=== PATIENT | male | born 1935 | race Caucasian/White ===

== ENCOUNTER 2023-06-12 22:46 | Emergency (ER) | payer OTHER, SELFPAY ==
[2023-06-12 22:51] VITALS: BP 138/76
--- NOTE | 2023-06-12 23:54 | ED.GENMED ---
History of Present Illness
General
Chief Complaint: Fall
Source: patient
Exam Limitations: none
Time Seen by Provider: 06/12/23 23:47
Travel History
Have you had any contact with someone who has COVID-19?: No
Do you have any symptoms of coronavirus? Fever > 100 degrees, chills, cough, shortness of breath, sore throat, loss of taste or smell, muscle aches, or headache?: No
History of Present Illness
History of Present Illness:
See MDM
Past History
Past History
ED Past Medical History: Arrthythmia (afib), CAD (Stent in October 2014), CHF, HTN, Hypercholesterolemia, IDDM, NM, Hypothyroidism, Other (Adrenal insufficiency, Pituitary rupture, syncope, prior history of bowel instruction, DVT R leg, pituitary
mass,PNA) and Other (DVT)
ED Past Surgical History: Appendectomy, Bowel resection (with Ileostomy for Diverticulitis), Cardiac (Pacer/Defib, Stents, CABG,), Cholecystectomy and Other (ileostomy, IVC filter)
Social History
Tobacco: Former smoker
Alcohol: None
Drug: None
Personal:
Living: with family
Employment: Retired
Family History
Family History: Hypertension
Phy Exam
Physical Exam
Physical Exam:
See MDM
Course
Orders/Labs/Results
Orders:
Orders
06/12/23 23:50
Electrocardiogram (*1) Urgent
Reason for Study: QTc Monitoring
EKG- Treatment ONCE
06/13/23 23:53
CR Chest - 2 Views Urgent
Reason For Exam: recent pacemaker, fall, chest discomfort
Vital Signs
Initial and Last Documented VS:
Initial Vital Signs
Temp Pulse Resp BP Pulse Ox
97.9 F 62 18 138/76 99
06/12/23 22:51 06/12/23 22:51 06/12/23 22:51 06/12/23 22:51 06/12/23 22:51
Last Documented Vital Signs
Temp Pulse Resp BP Pulse Ox
97.9 F 62 18 138/76 99
06/12/23 22:51 06/12/23 22:51 06/12/23 22:51 06/12/23 22:51 06/12/23 22:51
MDM/Problems Addressed
Differential Diagnosis Includes:
HPI and MDM Narrative:
88-year-old male presenting with a slip and fall. Patient had a defibrillator placed earlier today. He was told not to fall. This is a common occurrence per . Patient really denies any complaint
Given the recent surgery, will obtain EKG to assess that the leads are pacing and will obtain chest x-ray looking for any evidence of trauma or misplaced lead
Physical exam
General: Well appearing and non-toxic
HEENT: protecting airway
Neck: appears supple
CV: No evidence of cyanosis. Regular rate and rhythm
Chest: Pacemaker site clean and intact
Resp: No accessory muscle use
Abd: Non-distended
Extremities: No deformities
Neuro: alert
Psych: Normal affect
Skin: Intact
Problems Addressed including Acute and Chronic Conditions affecting care:
1. Fall
Acuity: acute
Prognosis: stable
Details: Will obtain chest x-ray given recent pacemaker
Updates
EKG is being paced and x-ray without acute injury. Patient and feel comfortable going home
Differential Diagnosis (but not limited to): Contusion, misplaced defibrillator lead, rib fracture
Testing considered: Hip x-ray but no tenderness elicited
Drug therapy (if applicable): OTC meds, please see d/c instruction regarding Rx drugs
Amount and/or Complexity of Data Reviewed
Clinical info obtained from: Patient
External data reviewed: N/A
Labs I independently reviewed (but not limited to): N/A
Radiology: N/A
Pulse Ox: not hypoxic
EKG independently reviewed: Biventricular paced rhythm, left axis, no STEMI
Apprentice Carpenter: N/A
Critical Care: N/A
Risk of Complication:
Social Determinants of health: Good social support
Discussed with other providers: N/A
Escalation of Care includes Admit/Obs: After being observed in the Emergency Department, pt stable for discharge.
Occasional wrong word or 'sound a like' substitutions may have occurred due to the inherent limitations of voice recognition software. Read the chart carefully and recognize, using context, where substitutions have occurred.
*Critical Care Note
Total Time (30-74mins, 75-104mins- exclusive of procedures): Not Applicable
ED Attending Note
-
Portions of this chart may have been created with voice recognition software.� Occasional wrong word or��sound alike� substitutions may have occurred due to the inherent limitations of voice recognition software.
Discharge Plan
Departure
Patient Disposition: Home (Routine Discharge)
Date of Disposition: 06/13/23
Time of Disposition: 00:48
Patient with high blood pressure during this ER visit?: No
Discharge Problem:
Frequent falls
Instructions: Preventing falls in adults
Prescriptions:
No Action
nitroglycerin 0.4 MG tablet, sublingual
0.4 mg sublingual [id number] PRN (Reason: chest pain)
atorvastatin 40 MG tablet
40 mg PO QPM
hydrocortisone 10 MG tablet
20 mg PO NOON
levothyroxine 75 MCG tablet
75 mcg PO DAILY@0700
ascorbic acid (vitamin C) [Vitamin C] 500 MG tablet
1,000 mg PO DAILY
magnesium 250 MG tablet
500 mg PO DAILY
tamsulosin 0.4 MG capsule
0.4 mg PO HS Qty: 30 0RF
ranolazine 500 MG tablet extended release 12 hr
500 mg PO QPM
insulin aspart U-100 [Novolog FlexPen U-100 Insulin] 300 UNITS/3 ML insulin pen
8 sliding scale dose SC AC
warfarin 2 mg Tablet
2 mg PO QPM
Hold Instructions: Resume on 05/04/23.
hydrocortisone 10 mg Tablet
10 mg PO QPM
pantoprazole 40 mg Tablet,Delayed Release (Dr/Ec)
40 mg PO DAILY
fluticasone propionate 50 mcg/actuation Crowell,Suspension
2 spray INTRANASAL DAILY
duloxetine 30 mg capsule,delayed release(DR/EC)
30 mg PO DAILY
insulin glargine 100 unit/mL (3 mL) Insulin Pen
20 unit SC DAILY
acetaminophen [Tylenol] 325 mg Tablet
650 mg PO Q6HPRN PRN (Reason: MILD PAIN)
potassium chloride 20 mEq tablet extended release
40 meq PO DAILY Qty: 30 0RF
furosemide 80 MG tablet
80 mg PO DAILY
metolazone 2.5 mg Tablet
2.5 mg PO TUFR PRN (Reason: WEIGHT >200LBS)
Rx Instructions:
TAKE 30 MINUTES PRIOR TO LASIX ON THURSDAY AND THURSDAY FOR WEIGHT > 200LBS
cholecalciferol (vitamin D3) [Vitamin D3] 50 mcg (2,000 unit) Tablet
50 mcg PO DAILY
metoprolol succinate 100 mg Tablet Extended Release 24 Hr
100 mg PO DAILY Qty: 90 3RF
Referrals:
Dominic Jules DO [Family Provider] -
Activity Restrictions/Additional Instructions:
Please return for any worsening symptoms.
You may return at any time if you have further concerns.
Please follow up with your doctor at the first available appointment, preferably this week.
Thank you for choosing [facility].
Interventions
Interventions:
*Risk Screen - Suicide Last Done: 06/12/23 22:51
*General Assessment Last Done: 06/12/23 22:51
*Neglect/Abuse Screening Last Done: 06/12/23 22:51
*ED COVID-19 Vaccine History Last Done: 06/12/23 22:51
ED-Musculoskeletal Assessment Last Done: 06/13/23 00:16
ED- Neurological Assessment Last Done: 06/13/23 00:16
ED-Skin Assessment Last Done: 06/13/23 00:16
== END 2023-06-13 01:31 | disposition home or self-care (01) ==
LOC: EMR 22:46
PROVIDERS: EMERGENCY PHYSICIAN Student in an Organized Health Care Education/Training Program; FAMILY PHYSICIAN Internal Medicine
DX: R07.89 Other chest pain (principal); W01.0XXA Fall on same level from slipping, tripping and stumbling without subsequent striking against object, initial encounter; I48.91 Unspecified atrial fibrillation; I25.10 Atherosclerotic heart disease of native coronary artery without angina pectoris; I11.0 Hypertensive heart disease with heart failure; I50.9 Heart failure, unspecified; E78.00 Pure hypercholesterolemia, unspecified; E11.9 Type 2 diabetes mellitus without complications; E03.9 Hypothyroidism, unspecified; E27.40 Unspecified adrenocortical insufficiency; I25.2 Old myocardial infarction; Z98.890 Other specified postprocedural states; Z79.4 Long term (current) use of insulin; R29.6 Repeated falls; Z86.718 Personal history of other venous thrombosis and embolism; Z87.891 Personal history of nicotine dependence; Z95.5 Presence of coronary angioplasty implant and graft; Z95.810 Presence of automatic (implantable) cardiac defibrillator; Z95.1 Presence of aortocoronary bypass graft; Z79.01 Long term (current) use of anticoagulants; Z98.0 Intestinal bypass and anastomosis status; Z90.49 Acquired absence of other specified parts of digestive tract; Z88.8 Allergy status to other drugs, medicaments and biological substances
CPT/HCPCS: 99283; 71046; 93005

== ENCOUNTER 2023-06-15 18:35 | Observation (INO) | payer OTHER, SELFPAY ==
[2023-06-15] VITALS (7 sets, daily range): BP systolic 115–143; BP diastolic 57–80; BMI 22.7; BMI 23.4
[2023-06-15 13:32] LABS: % Basophils 0.5 % (0-2); % Eosinophils 0.1 % (0-6); % Immature Granulocytes 0.4 % (0-0.5); % Lymphocytes 8.6 % (20.5-51.1); % Monocytes 9.8 % (1.7-9.3); % Neutrophils 80.6 % (42.2-75.2); Absolute Lymphocytes 0.7 10^3/uL (1.2-3.4); Absolute Monocytes 0.8 10^3/uL (0.1-0.6); Absolute Neutrophils 6.7 10^3/uL (1.4-6.5); Hematocrit 40.3 % (39.0-52.0); Hemoglobin 13.6 g/dL (13.0-18.0); Mean Corp Hgb Conc. 33.7 g/dL (33.0-37.0); Mean Corpuscular Hgb 31.2 pg (27.0-31.0); Mean Corpuscular Volume 92.4 fL (80.0-94.0); Mean Platelet Volume 11.3 fL (7.4-10.4); Nucleated Red Blood Cells % 0 % (-); Platelet Count 76 10^3/uL (130-400); Red Blood Cell Count 4.36 10^6/uL (4.70-6.10); Red Cell Dist. Width 14.7 % (11.5-14.5); White Blood Cell Count 8.4 10^3/uL (4.8-10.8)
[2023-06-15 13:50] LABS: ALT (SGPT) 18 U/L (0-50); AST (SGOT) 26 U/L (17-59); Albumin 3.4 g/dl (3.5-5.0); Alkaline Phosphatase 67 U/L (38-126); Blood Urea Nitrogen 46 mg/dl (9-20); Calcium 8.6 mg/dl (8.4-10.2); Carbon Dioxide 27 mmol/L (22-30); Chloride 103 mmol/L (98-107); Glucose 214 mg/dl (70-99); Potassium 3.8 mmol/L (3.5-5.1); Sodium 134 mmol/L (135-145); Total Bilirubin 0.8 mg/dl (0.2-1.3); Total Protein 5.9 g/dl (6.3-8.2)
[2023-06-15 13:55] LABS: COVID-19 Antigen Positive (Negative)
[2023-06-15 14:09] LABS: Estimated Creatinine Clearance 35 ml/min; eGFR 35.76
--- NOTE | 2023-06-15 15:45 | ED.GENMED ---
History of Present Illness
General
Chief Complaint: Weakness
Source: patient and spouse
Time Seen by Provider: 06/15/23 13:58
Travel History
Have you had any contact with someone who has COVID-19?: No
Do you have any symptoms of coronavirus? Fever > 100 degrees, chills, cough, shortness of breath, sore throat, loss of taste or smell, muscle aches, or headache?: No
History of Present Illness
History of Present Illness:
88-year-old male presents to the emergency room for evaluation of profound weakness. Patient was hospitalized recently for revision and replacement of an ICD. Patient was feeling weak when he came home from that procedure but symptoms have
worsened. He cannot walk due to profound weakness. He denies feeling short of breath.
Past History
Past History
ED Past Medical History: Arrthythmia (afib), CAD (Stent in October 2014), CHF, HTN, Hypercholesterolemia, IDDM, ND, Hypothyroidism, Other (Adrenal insufficiency, Pituitary rupture, syncope, prior history of bowel instruction, DVT R leg, pituitary
mass,PNA) and Other (DVT)
ED Past Surgical History: Appendectomy, Bowel resection (with Ileostomy for Diverticulitis), Cardiac (Pacer/Defib, Stents, CABG,), Cholecystectomy and Other (ileostomy, IVC filter)
Social History
Tobacco: Former smoker
Alcohol: None
Drug: None
Personal:
Living: with family
Employment: Retired
Family History
Family History: Hypertension
Phy Exam
Physical Exam
Physical Exam:
General: Awake, Alert, Oriented X3. Patient is chronically ill
Vitals: unremarkable
Head: Atraumatic
Eyes: Pupils equal, EOMI
Throat: Airway intact, no exudates, dry mucosa
Neck: Trachea midline
Lungs: Clear and equal b/l
Heart: Regular rate, no murmurs
Abd: Soft, Nontender, No pulsatile mass
Neuro: Nonfocal
Skin: Warm, dry, no rash
Extremities: pulses equal b/l, no edema
Course
Orders/Labs/Results
Orders:
Orders
06/15/23 13:16
COVID-19 Antigen Urgent
Source: Nasal Swab
Complete Blood Count/With Diff Urgent
Comprehensive Metabolic Panel Urgent
Influenza A+B Rapid Molecular Urgent
SAAD Source: Nasal Swab
Specimen Description:
06/15/23 14:22
CR Chest - 2 Views Urgent
Comment:
Reason For Exam: sob, cough, weakness
06/15/23 Dinner
Cholesterol Lowering
At Your Request: Full Participation
06/15/23 15:45
Physical Therapy Consult [Pt Eval And Treat] Urgent
Activity Level: As Tolerated
06/15/23 18:04
Admit/Transfer Patient As Directed
Co-Sign Provider:
Level of Care: Observation services
Assign to:: Medical/Surgical
Physician / Group: aubrey rodriguez
Diagnosis: covid weakness , walter on ckd
Code Status As Directed
Resuscitation Status: Do not resuscitate
Reached after discussion with pt or family/Healthcare POA: Yes
Based on pt advanced directive or healthcare POA form: Yes
Decision communicated with: per pt and Polina
DNR Bracelet Application ONCE
06/15/23 19:32
Acetaminophen [Tylenol] 650 mg PO Q6HPRN PRN
Dextrose 50%-Water [Dextrose 50% Syringe] 12.5 grams IV [id number] PRN
Glucagon [GlucaGen] 1 mg IM PRN PRN
fluticasone propionate 2 spray NASAL DAILY PRN
06/15/23 19:32
VTE Contraindication Routine
VTE Mechanical Device Contraindication: Medical Contraindication
Pharmocologic Contraindication: Medical Contraindication
Comment: pt on coumadin
Activity As Directed
Activity Level: Out of Bed-Early Mobility
Activity As Directed
Activity Level: With Assistance
Bedside Glucose Monitoring As Directed
Frequency: AC&HS
Comment: Change to q6h if pt on TPN, tube feeding or not eating
Intake/ Output As Directed
Frequency: Per unit guidelines
Precautions As Directed
Type of Precautions: Droplet
Contact
Precautions As Directed
Type of Precautions: Other
Comment: fall precautions
Vital Signs As Directed
Frequency: Per unit guidelines
Vital Signs As Directed
Frequency: Per unit guidelines
Weight As Directed
Frequency: Once
Comment: on admission
Pulse Ox/cont/shift [RESP] Routine
Quantity: 1
Special Instructions: continuous pulse oximetry
06/15/23 20:00
Guaifenesin [Mucinex] 600 mg PO Q12
06/15/23 20:21
PT/INR [Prothrombin Time] Urgent
06/15/23 22:00
Atorvastatin [Lipitor] 40 mg PO HS
Tamsulosin [Flomax] 0.4 mg PO HS
06/16/23 05:20
Basic Metabolic Panel IN AM
Complete Blood Count/With Diff IN AM
PT/INR [Prothrombin Time] IN AM
06/16/23 06:00
Urine Creatinine IN AM
Urine Sodium IN AM
06/16/23 07:00
Levothyroxine [Synthroid] 75 mcg PO DAILY@0700
06/16/23 07:30
Insulin Aspart Corrective Low [Novolog Flexpen-Low Resistance] See Protocol SC AC
06/16/23 08:00
Duloxetine Delayed Release [Cymbalta Delayed Release] 30 mg PO DAILY
Hydrocortisone [Cortef] 20 mg PO DAILY
Metoprolol Xl [Toprol Xl] 100 mg PO DAILY
Pantoprazole [Protonix] 40 mg PO DAILY
insulin glargine 20 unit SC DAILY
06/16/23 12:00
Ascorbic Acid [Vitamin C] 1,000 mg PO NOON
Cholecalciferol (Vitamin D3) [VITAMIN D3 (cholecalciferol)] 100 mcg PO NOON
Magnesium Oxide 500 mg PO NOON
06/16/23 18:00
Hydrocortisone [Cortef] 10 mg PO QPM
Ranolazine Extended Release [Ranexa Extended Release] 500 mg PO QPM
Warfarin [Coumadin] 2 mg PO QPM
06/17/23 06:00
PT/INR [Prothrombin Time] IN AM
06/18/23 06:00
PT/INR [Prothrombin Time] IN AM
Abnormal Lab Results
06/15/23
13:16
RBC 4.36 L 10^6/uL
(4.70-6.10)
MCH 31.2 H pg
(27.0-31.0)
RDW 14.7 H %
(11.5-14.5)
Plt Count 76 L 10^3/uL
(130-400)
MPV 11.3 H fL
(7.4-10.4)
Absolute Neuts (auto) 6.7 H 10^3/uL
(1.4-6.5)
Absolute Lymphs (auto) 0.7 L 10^3/uL
(1.2-3.4)
Absolute Monos (auto) 0.8 H 10^3/uL
(0.1-0.6)
Neutrophils % 80.6 H %
(42.2-75.2)
Lymphocytes % 8.6 L %
(20.5-51.1)
Monocytes % 9.8 H %
(1.7-9.3)
Sodium 134 L mmol/L
(135-145)
BUN 46 H mg/dl
(9-20)
Creatinine 1.8 H mg/dL
(0.7-1.3)
Glucose 214 H mg/dl
(70-99)
Total Protein 5.9 L g/dl
(6.3-8.2)
Albumin 3.4 L g/dl
(3.5-5.0)
SARS-CoV-2 Antigen Positive A
(Negative)
06/15/23 13:16
06/15/23 13:16
Vital Signs
Initial and Last Documented VS:
Initial Vital Signs
Temp Pulse Resp BP Pulse Ox
100.1 F 87 16 127/80 98
06/15/23 12:56 06/15/23 12:56 06/15/23 12:56 06/15/23 12:56 06/15/23 12:56
Last Documented Vital Signs
Temp Pulse Resp BP Pulse Ox
99.0 F 86 18 125/67 99
06/15/23 23:18 06/15/23 23:18 06/15/23 23:18 06/15/23 23:18 06/15/23 23:18
MDM/Problems Addressed
Differential Diagnosis Includes:
Hyponatremia, dehydration, viral illness, pneumonia
MDM/Problems Addressed:
Patient's labs are all essentially at his baseline. COVID test is positive but certainly would justify his weakness. He is not hypoxic. Will consult case management for possible correction placement. Also physical therapy evaluation ordered
CM not available to attempt Detention placement. Will need to hospitalize overnight.
*Radiology
Radiology exam reviewed: preliminary read by ED provider (Chest x-ray personally reviewed by myself, no acute disease)
*Pulse Oximetry
Patient hypoxic: no
*Critical Care Note
Total Time (30-74mins, 75-104mins- exclusive of procedures): Not Applicable
Patient Management
Social determinants of health affecting care: Living situation (Lives with his who was unable to provide adequate care for him)
ED Attending Note
-
Portions of this chart may have been created with voice recognition software.� Occasional wrong word or��sound alike� substitutions may have occurred due to the inherent limitations of voice recognition software.
Discharge Plan
Interventions
Interventions:
*Risk Screen - Suicide Last Done: 06/15/23 14:03
*General Assessment Last Done: 06/15/23 14:03
*Neglect/Abuse Screening Last Done: 06/15/23 14:03
ED- Fall Risk Assessment Last Done: 06/15/23 14:03
*ED COVID-19 Vaccine History Last Done: 06/15/23 12:56
*Nursing Disposition Last Done: 06/15/23 19:46
ED- Cardiac Assessment Last Done: 06/15/23 14:03
ED- Neurological Assessment Last Done: 06/15/23 16:11
ED- Pulmonary Assessment Last Done: 06/15/23 14:03
--- NOTE | 2023-06-15 17:26 | HPS.HSE ---
Addendum entered and electronically signed by Stephen Arndt MD 06/15/23 18:09:
I saw and examined the patient.
The MAKE UP OPERATOR's note was reviewed and I agree with the note.
Comment:
88-year-old male extensive past medical history who had a recent BiV ICD upgrade with AVJ ablation who is presenting with weakness. Patient was found to COVID-positive. Patient stable on room air. Patient denies any productive cough. Patient was
eval by PT [facility] Elevated creatinine noted. Check INR.
General:�Comfortable, Conversant and Chills; No Pain or Fever
HEENT:�NormoCephalic, Anicteric, Moist mucous membranes, [place] Conjunctivae and No Ptosis
Respiratory:�Clear; No Wheezes, Rales, Rhonchi or Crackles
Cardiac:�S1/S2, Regular Rhythm, Peripheral Edema (Chronic bilateral + with PVD brown pigment changes) and Other (ICD present left upper chest wall with Aquacel dressing overlying ICD no surrounding ecchymosis or erythema); No Murmur, Rub or Gallop
GI:�Soft, Non Tender, Non Distended, No Hepatosplenomegaly and Ostomy (Right lower quadrant)
Musculoskeletal:�No Clubbing, No Cyanosis, Edema, Left Lower Extremity (Chronic bilateral + with PVD brown pigment changes) and Edema, Right Lower Extremity (Chronic bilateral + with PVD brown pigment changes); No Edema, Left Upper Extremity or
Edema, Right Upper Extremity
Skin:�Warm and Dry; No Rash
Neuro:�AO x 3 (To name, place, ) and No Sensory Deficits; No Slurred Speech, Facial Droop or Tremors
Psych:�Calm
Impression
COVID weakness
CELESTE on CKD stage III.
Chronic HFrEF
Recent BiV ICD upgrade with AVJ ablation
V. tach status post ICD
Nonischemic cardiomyopathy
Atrial fibrillation
Chronic coagulopathy with Coumadin
Plan
Hold Lasix. Will recheck creatinine
Check urine lites
Check INR
Chest x-ray clear negative for infiltrates
Not a candidate for Decadron or remdesivir
Unclear timeline can hold Paxlovid for now
PT OT and placement
If with episode of hypotension then start stress dose steroids. Currently blood pressure well-controlled.
Original Note:
Family Physician
-
Family Physician: Dominic Jules
Chief Complaint
-
Profound weakness, fall
History of Present Illness
88-year-old male 4 days status post BiV ICD upgrade with AVJ ablation here with profound weakness and found to be COVID-positive today in the ER. His reports on Thursday after discharge he fell was brought back to the ER and was cleared to go
home. She reports he was normal on Thursday using his walker and eating then on Thursday developed loose stool with a productive yellow cough and chills. Today he was unable to get up and walk. She states they have only been to the hospital have
not been out of the home she denies any current symptoms herself. The patient denies headache, sore throat, chest pain, palpitations, shortness of breath, abdominal pain, nausea, vomiting, urinary symptoms. He has past medical history of HTN, HLD,
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
Medical History
Past Medical History
Past Medical History: Reports Other
Additional Past Medical History:
HTN
HLD
nonischemic cardiomyopathy
post BiV ICD upgrade with AVJ ablation 06/10/23
left anterior fascicular block
first-degree AV block
chronic systolic heart failure with reduced EF
paroxysmal A-fib
dementia�mild
DM2
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
NH, CAD/CABG x 4 vessel 2000,
HLD
DVT with IVC filter 2017
thrombocytopenia
depression
obesity
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
Past Surgical History: Reports Other ( post BiV ICD upgrade with AVJ ablation jun 10 2023)
Social History
Tobacco: Former Smoker (quit 52 years ago)
Alcohol: None
Drug: None
Personal:
Living: With Family
Employment: Retired
Family History
Family History: Unable to Obtain
Allergies / Home Medications
Allergies reflects when Allergies were last updated in [facility].
Home Medications with original date entered in [facility]
Allergy/Medication List:
Allergies
Allergy/AdvReac Type Severity Reaction Status Date / Time
amiodarone Allergy Elevated Verified 06/15/23 12:59
LFT's
clopidogrel Allergy Unknown Verified 06/15/23 12:59
quetiapine [From Seroquel] Allergy elevated Verified 06/15/23 12:59
LFTS
Home Medications
atorvastatin 40 mg tablet 40 mg PO HS High cholesterol 08/03/20
nitroglycerin 0.4 mg sublingual tablet 0.4 mg sublingual [id number] PRN chest pain 08/03/20
hydrocortisone 10 mg tablet 20 mg PO DAILY ADRENAL INSUFFICIENCY 12/15/20
ascorbic acid (vitamin C) 500 mg tablet (Vitamin C) 1,000 mg PO NOON Supplement 12/29/20
levothyroxine 75 mcg tablet 75 mcg PO DAILY Thyroid 12/29/20
magnesium 250 mg tablet 500 mg PO NOON Supplement 12/29/20
tamsulosin 0.4 mg capsule 0.4 mg PO HS #30 caps 01/09/21
ranolazine 500 mg tablet,extended release,12 hr 500 mg PO QPM Heart disease/condition 08/15/21
hydrocortisone 10 mg tablet 10 mg PO QPM Anti-inflammatory 11/22/21
warfarin 2 mg tablet 2 mg PO QPM Atrial fibrillation/stroke prevention 11/22/21
duloxetine 30 mg capsule,delayed release 30 mg PO DAILY Depression 03/08/23
fluticasone propionate 50 mcg/actuation nasal spray,suspension 2 spray intranasal DAILY PRN Allergies 03/08/23
insulin glargine 100 unit/mL (3 mL) subcutaneous pen 20 unit SC DAILY Diabetes 03/08/23
pantoprazole 40 mg tablet,delayed release 40 mg PO DAILY Gastrointestinal Issue 03/08/23
acetaminophen 325 mg tablet (Tylenol) 650 mg PO Q6HPRN PRN MILD PAIN 04/25/23
cholecalciferol (vitamin D3) 50 mcg (2,000 unit) tablet (Vitamin D3) 100 mcg PO NOON Supplement 06/11/23
furosemide 80 mg tablet 80 mg PO DAILY Fluid Retention/Swelling 06/11/23
metolazone 2.5 mg tablet 2.5 mg PO TUFR PRN WEIGHT>200LBS 06/11/23
metoprolol succinate 100 mg tablet,extended release 24 hr 100 mg PO DAILY #90 tabs 06/12/23
insulin aspart U-100 100 unit/mL (3 mL) subcutaneous pen (Novolog FlexPen U-100 Insulin aspart) 0 sliding scale dose SC DIRECTED 06/15/23
potassium chloride 20 mEq tablet,extended release 40 meq PO .LUNCHTIME 06/15/23
Review of Systems
-
History Source: Patient and Family ( Polina)
A 12 point ROS was completed and negative except as noted: Yes
Constitutional: Reports Fatigue and Chills; Denies Fever
EENT: Denies Sore Throat or Runny Nose
Respiratory: Reports Cough (Productive yellow); Denies Trouble Breathing
Cardiac: Denies Chest Pain, Diaphoresis, Palpitations or Syncope
Abdomen/GI: Denies Abdominal Pain, Nausea, Vomiting, Diarrhea, Constipated, Bloody Stools or Black Stools
: Denies Dysuria, Frequency, Flank Pain, Incontinence, Difficulty Voiding or Urgency
Musculoskeletal: Reports Edema (Chronic bilateral + with PVD brown pigment changes); Denies Joint Pain
Skin: Denies Itching or Rash
Neurological: Reports Weakness (Generalized); Denies Dizzy or Headache
Endocrine: Reports No Symptoms
Hematologic/Lymphatic: Reports No Symptoms
Psych: Reports Calm
Physical Exam
Vital Signs
Vital Signs
Temp Pulse Resp BP Pulse Ox
100.1 F 87 26 125/69 97
06/15/23 12:56 06/15/23 16:12 06/15/23 16:12 06/15/23 16:12 06/15/23 16:12
Physical Exam
General: Comfortable, Conversant and Chills; No Pain or Fever
HEENT: NormoCephalic, Anicteric, Moist mucous membranes, [place] Conjunctivae and No Ptosis
Respiratory: Clear; No Wheezes, Rales, Rhonchi or Crackles
Cardiac: S1/S2, Regular Rhythm, Peripheral Edema (Chronic bilateral + with PVD brown pigment changes) and Other (ICD present left upper chest wall with Aquacel dressing overlying ICD no surrounding ecchymosis or erythema); No Murmur, Rub or Gallop
Breast: Deferred by me
GI: Soft, Non Tender, Non Distended, No Hepatosplenomegaly and Ostomy (Right lower quadrant)
Rectal: Deferred by Provider
Genito-urinary: Deferred by me
Musculoskeletal: No Clubbing, No Cyanosis, Edema, Left Lower Extremity (Chronic bilateral + with PVD brown pigment changes) and Edema, Right Lower Extremity (Chronic bilateral + with PVD brown pigment changes); No Edema, Left Upper Extremity or
Edema, Right Upper Extremity
Skin: Warm and Dry; No Rash
Neuro: AO x 3 (To name, place, ) and No Sensory Deficits; No Slurred Speech, Facial Droop or Tremors
Psych: Calm
Laboratory Results
-
06/15/23 13:16
06/15/23 13:16
Laboratory Results
Total Bilirubin 0.8 mg/dl (0.2-1.3) 06/15/23 13:16
AST 26 U/L (17-59) 06/15/23 13:16
ALT 18 U/L (0-50) 06/15/23 13:16
Alkaline Phosphatase 67 U/L (38-126) 06/15/23 13:16
Data Reviewed
-
Lab Data: Labs Reviewed by me
Impression/Plan
-
Impression/plan:
Observation MedSurg
#COVID weakness
#Hx COVID July 2021-was hospitalized but did not receive remdesivir or Decadron
100.1 F, HR 87, 125/69, 97% RA
-Not a candidate for remdesivir or Decadron
-Continue patient's scheduled hydrocortisone 20 mg a.m./10 mg p.m. for adrenal insufficiency
-Consult case management for SNF placement
-PT/OT eval
-Tylenol as needed
-Mucinex as needed
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
Creat 1.8 was 1.4 on 06/12/2023
-HOld lasix
-will follow bmp
#Hx frequent falls
-Fall precautions
# Status post BI�V ICD upgrade 06/11/2023 with AVJ ablation
#Nonsustained V. tach previous ICD
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
#Nonischemic cardiomyopathy
-Left upper ICD intact covered with dressing no surrounding erythema or edema
-pt and encouraged to move his arms to shoulder level only, bend at elbows , suppinate and pronate-he and his were under the assumption he was unable to move his entire left arm due to recent ICD placement
#Chronic systolic heart failure reduced EF 30%
I/O, daily weights
hold Lasix 80 mg daily today
#Paroxysmal A-fib
- cont coumadin , check inr
#Dementia Hx-mild
-Oriented to name, , recent procedure
#DM 2
Accu-Cheks with SSI, check HgbA1c
-Continue Lantus and aspart
#Status post pituitary adenoma resection
#Hypopituitarism
-Continue hydrocortisone 20 mg a.m., 10 mg every afternoon
-Continue Synthroid
#Ulcerative colitis status post colostomy right lower quadrant 52 years ago
#HTN�benign
-Continue metoprolol succinate 100 mg daily with hold parameters
#CAD/CABG x 4 vessel 2000
#NH
-Continue metoprolol succinate 100 mg daily with hold parameters
-Continue Ranexa with hold parameters
#HLD
-Continue Lipitor
#DVT with IVC filter 2017
#Thrombocytopenia hx
-Plt 76 baseline 78-103
#Depression
-Continue duloxetine 30 mg daily
DVT prophylaxis
-Continue CHARACTER ACTRESS Coumadin
DNR per patient and Polina
[2023-06-15 20:36] LABS: INR 1.79; PT 21.1 Sec (11.4-14.6)
[2023-06-15 21:13] LABS: Glucose - Point of Care 198 mg/dl (70-99)
[2023-06-15] MEDS: FLOMAX 0.400000000000000022 MG PO (21:34)
[2023-06-15] MEDS: LIPITOR 40 MG PO (21:34)
[2023-06-15] MEDS: MUCINEX 600 MG PO (21:41)
[2023-06-16 05:49] LABS: % Basophils 0.4 % (0-2); % Eosinophils 0.4 % (0-6); % Immature Granulocytes 0.4 % (0-0.5); % Lymphocytes 20.4 % (20.5-51.1); % Monocytes 12.5 % (1.7-9.3); % Neutrophils 65.9 % (42.2-75.2); Absolute Lymphocytes 1.1 10^3/uL (1.2-3.4); Absolute Monocytes 0.7 10^3/uL (0.1-0.6); Absolute Neutrophils 3.6 10^3/uL (1.4-6.5); Hematocrit 38.4 % (39.0-52.0); Hemoglobin 12.5 g/dL (13.0-18.0); Mean Corp Hgb Conc. 32.6 g/dL (33.0-37.0); Mean Corpuscular Hgb 30.6 pg (27.0-31.0); Mean Corpuscular Volume 94.1 fL (80.0-94.0); Mean Platelet Volume 10.5 fL (7.4-10.4); Nucleated Red Blood Cells % 0 % (-); Platelet Count 66 10^3/uL (130-400); Red Blood Cell Count 4.08 10^6/uL (4.70-6.10); Red Cell Dist. Width 14.7 % (11.5-14.5); White Blood Cell Count 5.4 10^3/uL (4.8-10.8)
[2023-06-16 05:57] LABS: PT 19.3 Sec (11.4-14.6)
[2023-06-16 06:00] VITALS: BMI 23.4
[2023-06-16] MEDS: SYNTHROID 75 MCG PO (06:07)
[2023-06-16 06:15] LABS: Blood Urea Nitrogen 46 mg/dl (9-20); Calcium 8.4 mg/dl (8.4-10.2); Carbon Dioxide 26 mmol/L (22-30); Chloride 101 mmol/L (98-107); Glucose 82 mg/dl (70-99); Potassium 3.7 mmol/L (3.5-5.1); Sodium 135 mmol/L (135-145)
[2023-06-16 06:27] LABS: Estimated Creatinine Clearance 38 ml/min
[2023-06-16 07:00] VITALS: BP 132/63
--- NOTE | 2023-06-16 07:52 | PTOTSP ---
MAINTENANCE ANALYST Screen
Patient admitted with COVID-19. Chest X-ray this admission 'No acute cardiopulmonary process.' Dysphagia consult not warranted at this time. Please place consult if signs concerning for aspiration or increased dysphagia observed.
Patient with a known history of dysphagia from prior video swallow studies, most recently . This study revealed mild-moderate pharyngeal dysphagia and silent aspiration of thin liquids via successive straw sips before the swallow due to
delay in swallow initiation. Contrast could be cleared from the airway with a cued cough but not the vocal folds. It was recommended patient have Regular, thin liquids with strategies including single sips via cup, no straws, intermittent
cough/re-swallows, reflux precautions, and small frequent meals.
[2023-06-16 08:30] LABS: Glucose - Point of Care 85 mg/dl (70-99)
[2023-06-16] MEDS: NOVOLOG FLEXPEN-LOW RESISTANCE SC (08:32)
[2023-06-16] MEDS: TOPROL XL 100 MG PO (08:33)
[2023-06-16] MEDS: MUCINEX 600 MG PO ×2 (08:33→19:23)
[2023-06-16] MEDS: CORTEF 20 MG PO (08:33)
[2023-06-16] MEDS: CYMBALTA DELAYED RELEASE 30 MG PO (08:33)
[2023-06-16] MEDS: PROTONIX 40 MG PO (08:33)
[2023-06-16] MEDS: LANTUS 0.200000000000000011 UNITS SC (08:33)
--- NOTE | 2023-06-16 09:24 | VNURNOTE ---
Patient is current with [facility] since 03/12 w/SN/PT/OT. SALES SUPPORT CONSULTANT contacted patient's 06/15 regarding [facility] services thru waiver program. [facility] was to follow up, awaiting authorization for home caregivers. Will monitor progress and plan at
discharge.
--- NOTE | 2023-06-16 10:05 | CM ---
Addendum entered by Carol Moura 06/16/23 15:32:
Call with [employer] to discuss auth process
Auth to be initiated by calling [phone] (p)
Clinicals then to be faxed to [phone] (f)
Will need expedited request for 72 hour processing
Standard requests take up to 14 days for processing
Will also need auth for BLS per [employer] through same process
No accepting facilities at this time
[facility] following pending bed availability and insurance review
Of note, per PT today, pt with some progress VN vs SNF now recommended
Original Note:
CM spoke with spouse
Both pt and spouse COVID+
They [place] with ramp entrance
Pt is able to ambulate with a WW and 1 person assist
Spouse provides daily assistance with ADLs and personal care tasks
Pt with dementia, is AxO 2x to person/place- pleasant and no behaviors
Pt is current with [facility]
Pt recently approved for HCBS through the waiver- awaiting implementation of services in the home
SNF recommended by therapy
Spouse in agreement- [facility] is 1st choice- aware may not accept due to COVID status
PASRR completed and broad net of referrals sent via [facility]
Pt has [employer] insurance and will need auth
FERNANDEZ completed verbally over phone
Spouse does not have email adress
requesting copy of FERNANDEZ with dc paperwork
Copy placed in dc folder
Discharge Disposition- SNF pending [employer] auth
[2023-06-16 10:12] VITALS: BP 101/57; BP 110/63; BP 92/55; PULSE 86; O2SAT 98
[2023-06-16] MEDS: VITAMIN D3 (cholecalciferol) 100 MCG PO (11:35)
[2023-06-16] MEDS: VITAMIN C 1000 MG PO (11:35)
[2023-06-16] MEDS: MAGNESIUM OXIDE 500 MG PO (11:35)
--- NOTE | 2023-06-16 12:00 | W.PN.HOSP.TC ---
Today's Communication/Plan
-
PT/OT SNF-CM aware
monitor sats o2
Assessment / Plan
Assessment / Plan
#COVID weakness
-Not a candidate for remdesivir or Decadron
-Continue patient's scheduled hydrocortisone 20 mg a.m./10 mg p.m. for adrenal insufficiency
-Consult case management for SNF placement
-PT/OT eval
-Tylenol as needed
-Mucinex as needed
#CKD stage IIIb
-HOld lasix
-will follow bmp
#Hx frequent falls
-Fall precautions
# Status post BI�V ICD upgrade 06/11/2023 with AVJ ablation
#Nonsustained V. tach previous ICD
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
#Nonischemic cardiomyopathy
-Left upper ICD intact covered with dressing no surrounding erythema or edema
-pt and encouraged to move his arms to shoulder level only, bend at elbows , suppinate and pronate-he and his were under the assumption he was unable to move his entire left arm due to recent ICD placement
#Chronic systolic heart failure reduced EF 30%
I/O, daily weights
hold Lasix 80 mg daily today
#Paroxysmal A-fib
#Subtherapeutic INR
- cont� coumadin increase dose to 3mg
-INR at 1.6
#Dementia Hx-mild
-Oriented to name, , recent procedure
#DM 2
Accu-Cheks with SSI, check HgbA1c at 7 on 05/27/23
-Continue Lantus and aspart
-poc 85
#Status post pituitary adenoma resection
#Hypopituitarism
-Continue hydrocortisone 20 mg a.m., 10 mg every afternoon
-Continue Synthroid
#Ulcerative colitis status post colostomy right lower quadrant 52 years ago
#HTN�benign
-Continue metoprolol succinate 100 mg daily with hold parameters
#CAD/CABG x 4 vessel 2000
#MD
-Continue metoprolol succinate 100 mg daily with hold parameters
-Continue Ranexa with hold parameters
#HLD
-Continue Lipitor
#DVT with IVC filter 2017
#Thrombocytopenia hx
-Plt 76 baseline 78-103
#Depression
-Continue duloxetine 30 mg daily
DVT prophylaxis
-Continue STRATEGY SPECIALIST Coumadin
DNR
Anticipated Discharge: Today
Subjective/Interval History
-
Date of Service: June 16, 2023
Feeling better
tolerating diet
afebrile
on room air
Objective Data
-
Labs:
Laboratory Results
06/16/23
05:20
WBC 5.4
Hgb 12.5 L
Hct 38.4 L
Plt Count 66 L
PT 19.3 H
INR 1.60
Sodium 135
Potassium 3.7
Chloride 101
Carbon Dioxide 26
BUN 46 H
Creatinine 1.7 H
Glucose 82
Calcium 8.4
Vital Signs:
Vital Signs
Temp Pulse Resp BP Pulse Ox
98.9 F 89 17 132/63 96
06/16/23 07:00 06/16/23 08:33 06/16/23 07:00 06/16/23 08:33 06/16/23 09:16
I&O
06/15/23 06/16/23 06/17/23
06:59 06:59 06:59
Intake Total 480 / 480
Output Total 200 / 200
Balance 280 / 280
Physical Exam
-
General: Well Developed and No Apparent Distress
HEENT: Normocephalic, Atraumatic and Moist Mucous Membranes
Respiratory: Clear to Auscultation
Cardiac: Regular Rhythm and S1/S2; Negative Murmur, Rub or Gallop
GI: Soft, Nontender, Nondistended and Normal Bowel Sounds; Negative Organomegaly
Rectal: Deferred by Provider
Musculoskeletal: No Clubbing, No Cyanosis and No Edema
Skin: Negative Rash
Neuro: Awake, Alert, No Motor Deficits and Nonfocal/Grossly Intact
Psych: Calm
[2023-06-16 12:26] LABS: Glucose - Point of Care 281 mg/dl (70-99)
[2023-06-16] MEDS: NOVOLOG FLEXPEN-LOW RESISTANCE 3 UNITS SC (13:06)
[2023-06-16 15:00] VITALS: BP 128/68
[2023-06-16 16:30] LABS: Glucose - Point of Care 335 mg/dl (70-99)
[2023-06-16] MEDS: NOVOLOG FLEXPEN-LOW RESISTANCE 4 UNITS SC (17:14)
[2023-06-16] MEDS: COUMADIN 3 MG PO (17:15)
[2023-06-16] MEDS: RANEXA EXTENDED RELEASE 500 MG PO (17:15)
[2023-06-16] MEDS: CORTEF 10 MG PO (17:16)
[2023-06-16 21:29] LABS: Glucose - Point of Care 206 mg/dl (70-99)
[2023-06-16] MEDS: FLOMAX 0.400000000000000022 MG PO (21:34)
[2023-06-16] MEDS: LIPITOR 40 MG PO (21:34)
[2023-06-17 00:15] VITALS: BP 108/56
[2023-06-17 05:20] LABS: Urine Sodium < 5 mmol/L (30-90)
[2023-06-17 06:17] LABS: INR 1.32; PT 16.7 Sec (11.4-14.6)
[2023-06-17] MEDS: SYNTHROID 75 MCG PO (06:34)
[2023-06-17 06:38] LABS: Blood Urea Nitrogen 44 mg/dl (9-20); Calcium 8.5 mg/dl (8.4-10.2); Carbon Dioxide 25 mmol/L (22-30); Chloride 102 mmol/L (98-107); Estimated Creatinine Clearance 46 ml/min; Glucose 87 mg/dl (70-99); Potassium 3.9 mmol/L (3.5-5.1); Sodium 135 mmol/L (135-145); eGFR 48.34
[2023-06-17 07:00] VITALS: BP 102/61
[2023-06-17 08:15] LABS: Glucose - Point of Care 87 mg/dl (70-99)
[2023-06-17] MEDS: MUCINEX 600 MG PO ×2 (09:00→21:02)
[2023-06-17] MEDS: LANTUS 0.200000000000000011 UNITS SC (09:00)
[2023-06-17] MEDS: CYMBALTA DELAYED RELEASE 30 MG PO (09:00)
[2023-06-17] MEDS: TOPROL XL PO (09:00)
[2023-06-17] MEDS: CORTEF 20 MG PO (09:00)
[2023-06-17] MEDS: PROTONIX 40 MG PO (09:00)
--- NOTE | 2023-06-17 09:59 | WOUNDNOTE ---
L GREAT TOE (DORSAL)
--- NOTE | 2023-06-17 10:01 | WOUNDNOTE ---
R THIGH (POSTERIOR UPPER MEDIAL)
--- NOTE | 2023-06-17 10:02 | WOUNDNOTE ---
R SHOULDER (POSTERIOR)(head toward bottom of photo)
--- NOTE | 2023-06-17 10:03 | WOUNDNOTE ---
[facility] RN note: Patient admitted with Covid weakness, CELESTE on CKD. Patient lives with and is current with VN. Plan is SNF rehab when discharged.
See H&P for complete history.
PMH: ICD, AVJ ablation with weakness, ulcerative colitis, ileostomy, CKD3, CM, a fib (Coumadin), venous stasis, HTN, CM, CHF, mild dementia, DM, CABG, DVT with IVC filter, thrombocytopenia, hypopituitary s/p pituitary adenoma resection.
Wound Location and type/assessment: Patient admitted with: L dorsal great toe dried blood blister. Blanchable red heels. L anterior medial upper thigh scabbed abrasion. Penis tip/groin yeast rash. Red skin L posterior shoulder (resolving rash?). R
medial ankle small dried scab. +Hemosiderosis Le's. +Pedal pulses heard via portable Doppler. Patient stated he wears knee high Tubigrip. Mild peristomal rash (improved from 02/2023 admission pic).
Appetite: good.
Pressure redistribution devices in place: [employer] Accumax. Patient can turn self in bed.
Plan: Ileostomy appliance leaking. Appliance changed using Cruz wafer #[id number], Jenny seal and [place] pouch # [id number]. No sting barrier wipe and 1.6x2 inch Optifoam Yanelis lite foam applied. Silicone border foam applied to L anterior thigh.
Heels off bed with air chair cushion. Dr. Arndt was in who evaluated patient. Hospitalist approved skin care and knee high Tubigrip. t/c SPD ordered size E Tubigrip. Updated RN Viviana.
Care plan to be updated and will follow as needed.
[2023-06-17] MEDS: NOVOLOG FLEXPEN-LOW RESISTANCE SC (10:45)
--- NOTE | 2023-06-17 12:09 | W.PN.HOSP.TC ---
Today's Communication/Plan
-
post ICD check per cards
increase coumadin
await placement
restart lasix
Assessment / Plan
Assessment / Plan
#COVID weakness
-Not a candidate for remdesivir or Decadron
-Continue patient's scheduled hydrocortisone 20 mg a.m./10 mg p.m. for adrenal insufficiency
-Consult case management for SNF placement
-PT/OT eval-SNF.
-Tylenol as needed
-Mucinex as needed
#CKD stage IIIb
-restart lasix. Cr at baseline 1.4-1.8
-will follow bmp
#Hx frequent falls
-Fall precautions
# Status post BI�V ICD upgrade 06/11/2023 with AVJ ablation
#Nonsustained V. tach previous ICD
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
#Nonischemic cardiomyopathy
-Left upper ICD intact covered with dressing no surrounding erythema or edema
-d/w with [facility] cardiology and pt will be evaluated in hospital for post op ICD f/u.
#Chronic systolic heart failure reduced EF 30%
I/O, daily weights
Lasix 80 mg daily
#Paroxysmal A-fib
#Subtherapeutic INR
-cont� coumadin increase dose to 5mg
-INR at 1.3
#Dementia Hx-mild
-monitor
#DM 2
Accu-Cheks with SSI, check HgbA1c at 7 on 05/27/23
-Continue Lantus and aspart
-poc 87
#Status post pituitary adenoma resection
#Hypopituitarism
-Continue hydrocortisone 20 mg a.m., 10 mg every afternoon
-Continue Synthroid
#Ulcerative colitis status post colostomy right lower quadrant 52 years ago
#HTN�benign
-Continue metoprolol succinate 100 mg daily with hold parameters
#CAD/CABG x 4 vessel 2000
#AR
-Continue metoprolol succinate 100 mg daily with hold parameters
-Continue Ranexa with hold parameters
#HLD
-Continue Lipitor
#DVT with IVC filter 2018
#Chronic Thrombocytopenia
-monitor. no acute for transfusion.
#Depression
-Continue duloxetine 30 mg daily
DVT prophylaxis
-Continue PIPE BUFFER Coumadin
DNR
Anticipated Discharge: Today
Subjective/Interval History
-
Date of Service: June 17, 2023
afebrile
tolerating diet
on room air
Objective Data
-
Labs:
Laboratory Results
06/17/23
05:48
PT 16.7 H
INR 1.32
Sodium 135
Potassium 3.9
Chloride 102
Carbon Dioxide 25
BUN 44 H
Creatinine 1.4 H
Glucose 87
Calcium 8.5
Vital Signs:
Vital Signs
Temp Pulse Resp BP Pulse Ox
97.5 F 53 18 102/51 100
06/17/23 07:00 06/17/23 09:00 06/17/23 07:00 06/17/23 09:00 06/17/23 07:00
I&O
06/16/23 06/17/23 06/18/23
06:59 06:59 06:59
Intake Total 480 / 480 320 / 320
Output Total 200 / 200 450 / 450
Balance 280 / 280 -130 / -130
Physical Exam
-
General: Well Developed and No Apparent Distress
HEENT: Normocephalic, Atraumatic and Moist Mucous Membranes
Respiratory: Clear to Auscultation
Cardiac: Regular Rhythm, S1/S2 and Other (aquacell dressing left site wall-non tender to palpaption); Negative Murmur, Rub or Gallop
GI: Soft, Nontender, Nondistended, Normal Bowel Sounds and Ostomy; Negative Organomegaly
Rectal: Deferred by Provider
Musculoskeletal: No Clubbing, No Cyanosis and No Edema
Skin: Negative Rash
Neuro: Awake, Alert, No Motor Deficits and Nonfocal/Grossly Intact
Psych: Calm
[2023-06-17 12:10] LABS: Glucose - Point of Care 184 mg/dl (70-99)
[2023-06-17 14:09] VITALS: BMI 22.9
--- NOTE | 2023-06-17 14:17 | W.PN.UPDATE ---
Update Note
Progress Note Update
Patient was scheduled for device incision check in office tomorrow, but is being d/c'd from here to SNF per attending, so I am asked to do post-procedure incision check here today. His left pectoral incision site appears well-healing without any
redness, drainage, or swelling. We reviewed activity restrictions and site care (and I will put in d/c instructions). I will have our office change follow-up visit from tomorrow to further out, and ensure he is enrolled in device clinic. Discussed
with nursing and patient. Procedure was 06/11/[address] Huang- Successful upgrade to BANQUET STEWARD-D with implantation of coronary sinus lead and atrial lead. Unsuccessful attempt of AVJ ablation.
[2023-06-17] MEDS: VITAMIN D3 (cholecalciferol) 100 MCG PO (14:42)
[2023-06-17] MEDS: VITAMIN C 1000 MG PO (14:42)
[2023-06-17] MEDS: NOVOLOG FLEXPEN-LOW RESISTANCE 1 UNITS SC (14:43)
[2023-06-17] MEDS: MAGNESIUM OXIDE 500 MG PO (14:47)
[2023-06-17] MEDS: LASIX 80 MG PO (14:48)
[2023-06-17 15:09] VITALS: BP 135/77
--- NOTE | 2023-06-17 16:42 | CM ---
Several snf's not accepting due to insurance
Accepted at [facility] - unable to accept until Thursday due to + covid
Spoke with pts - agreeable to snf
Will need auth - [place] insurance
[2023-06-17 16:59] LABS: Glucose - Point of Care 297 mg/dl (70-99)
[2023-06-17] MEDS: NOVOLOG FLEXPEN-LOW RESISTANCE 3 UNITS SC (17:21)
[2023-06-17] MEDS: RANEXA EXTENDED RELEASE 500 MG PO (17:23)
[2023-06-17] MEDS: COUMADIN 5 MG PO (17:23)
[2023-06-17] MEDS: RANEXA EXTENDED RELEASE PO (17:25)
[2023-06-17] MEDS: CORTEF 10 MG PO (18:14)
[2023-06-17] MEDS: DESENEX/MITRAZOL/ZEASORB 1 APPLIC TOPICAL (21:02)
[2023-06-17] MEDS: FLOMAX 0.400000000000000022 MG PO (21:02)
[2023-06-17] MEDS: LIPITOR 40 MG PO (21:02)
[2023-06-17 22:01] LABS: Glucose - Point of Care 217 mg/dl (70-99)
[2023-06-17 23:49] VITALS: BP 109/60
[2023-06-18 06:00] VITALS: BMI 22.5
[2023-06-18 06:38] LABS: INR 1.58
[2023-06-18 08:29] VITALS: BP 157/72
[2023-06-18] MEDS: MUCINEX 600 MG PO ×2 (08:30→20:21)
[2023-06-18] MEDS: PROTONIX 40 MG PO (08:30)
[2023-06-18] MEDS: CORTEF 20 MG PO (08:30)
[2023-06-18] MEDS: SYNTHROID 75 MCG PO (08:30)
[2023-06-18] MEDS: CYMBALTA DELAYED RELEASE 30 MG PO (08:30)
[2023-06-18] MEDS: LASIX 80 MG PO (08:30)
[2023-06-18] MEDS: DESENEX/MITRAZOL/ZEASORB 1 APPLIC TOPICAL ×2 (08:31→20:21)
[2023-06-18] MEDS: TOPROL XL 100 MG PO (08:34)
[2023-06-18] MEDS: NOVOLOG FLEXPEN-LOW RESISTANCE SC ×2 (08:35→17:56)
[2023-06-18 08:37] LABS: Glucose - Point of Care 144 mg/dl (70-99)
[2023-06-18 10:11] VITALS: BP 118/72; BP 126/78; PULSE 74; O2SAT 96
[2023-06-18] MEDS: LANTUS 0.200000000000000011 UNITS SC (10:41)
--- NOTE | 2023-06-18 10:54 | W.PN.HOSP.TC ---
Today's Communication/Plan
-
coumadin high dose
Await placement
Assessment / Plan
Assessment / Plan
#COVID weakness
-Not a candidate for remdesivir or Decadron
-Continue patient's scheduled hydrocortisone 20 mg a.m./10 mg p.m. for adrenal insufficiency
-Consult case management for SNF placement
-PT/OT eval-SNF.
-Tylenol as needed
-Mucinex as needed
#CKD stage IIIb
-restart lasix. Cr at baseline 1.4-1.8
#Hx frequent falls
-Fall precautions
# Status post BI�V ICD upgrade 06/11/2023 with AVJ ablation
#Nonsustained V. tach previous ICD
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
#Nonischemic cardiomyopathy
-d/w with CBC cardiology and pt was evaluated for post op check on 06/17.
#Chronic systolic heart failure reduced EF 30%
I/O, daily weights
Lasix 80 mg daily
#Paroxysmal A-fib
#Subtherapeutic INR
-cont� coumadin increase dose to 5mg
-INR at 1.6
#Dementia Hx-mild
-monitor
#DM 2
Accu-Cheks with SSI, check HgbA1c at 7 on 05/27/23
-Continue Lantus 20 u and ISS
-poc 144
#Status post pituitary adenoma resection
#Hypopituitarism
-Continue hydrocortisone 20 mg a.m., 10 mg every afternoon
-Continue Synthroid
#Ulcerative colitis status post colostomy right lower quadrant 52 years ago
#HTN�benign
-Continue metoprolol succinate 100 mg daily with hold parameters
#CAD/CABG x 4 vessel 2000
#[place]
-Continue metoprolol succinate 100 mg daily with hold parameters
-Continue Ranexa with hold parameters
#HLD
-Continue Lipitor
#DVT with IVC filter 2017
#Chronic Thrombocytopenia
-monitor. no acute for transfusion.
#Depression
-Continue duloxetine 30 mg daily
DVT prophylaxis
-Continue RESEARCH AND EVALUATION ANALYST Coumadin
DNR
PT/OT-SNF. Await placement. CM aware.
Anticipated Discharge: Today
Subjective/Interval History
-
Date of Service: June 18, 2023
remains on room air
no events overnight
tolerating diet
Objective Data
-
Labs:
Laboratory Results
06/18/23
05:54
PT 19.0 H
INR 1.58
Vital Signs:
Vital Signs
Temp Pulse Resp BP Pulse Ox
97.6 F 80 16 157/72 98
06/18/23 08:29 06/18/23 08:30 06/18/23 08:29 06/18/23 08:30 06/18/23 08:29
I&O
06/17/23 06/18/23 06/19/23
06:59 06:59 06:59
Intake Total 320 / 320 720 / 720
Output Total 450 / 450 1500 / 1500
Balance -130 / -130 -780 / -780
Physical Exam
-
General: Well Developed and No Apparent Distress
HEENT: Normocephalic, Atraumatic and Moist Mucous Membranes
Respiratory: Clear to Auscultation
Cardiac: Regular Rhythm, S1/S2 and Other (aquacell dressing left site wall-non tender to palpaption); Negative Murmur, Rub or Gallop
GI: Soft, Nontender, Nondistended, Normal Bowel Sounds and Ostomy; Negative Organomegaly
Rectal: Deferred by Provider
Musculoskeletal: No Clubbing, No Cyanosis and No Edema
Skin: Negative Rash
Neuro: Awake, Alert, No Motor Deficits and Nonfocal/Grossly Intact
Psych: Calm
[2023-06-18 12:32] LABS: Glucose - Point of Care 224 mg/dl (70-99)
[2023-06-18] MEDS: VITAMIN D3 (cholecalciferol) 100 MCG PO (12:59)
[2023-06-18] MEDS: MAGNESIUM OXIDE 500 MG PO (12:59)
[2023-06-18] MEDS: VITAMIN C 1000 MG PO (12:59)
[2023-06-18] MEDS: NOVOLOG FLEXPEN-LOW RESISTANCE 2 UNITS SC (13:00)
[2023-06-18 15:00] VITALS: BP 109/68
[2023-06-18 17:08] LABS: Glucose - Point of Care 70 mg/dl (70-99)
[2023-06-18] MEDS: CORTEF 10 MG PO (17:53)
[2023-06-18] MEDS: COUMADIN 5 MG PO (17:55)
[2023-06-18] MEDS: RANEXA EXTENDED RELEASE 500 MG PO (17:58)
[2023-06-18 21:21] LABS: Glucose - Point of Care 97 mg/dl (70-99)
[2023-06-18] MEDS: FLOMAX 0.400000000000000022 MG PO (21:40)
[2023-06-18] MEDS: MELATONIN 3 MG PO (21:40)
[2023-06-18] MEDS: LIPITOR 40 MG PO (21:40)
[2023-06-18 22:16] VITALS: BP 111/63
[2023-06-19 04:42] VITALS: BMI 22.2
[2023-06-19 07:10] LABS: Blood Urea Nitrogen 46 mg/dl (9-20); Carbon Dioxide 23 mmol/L (22-30); Chloride 101 mmol/L (98-107); Estimated Creatinine Clearance 38 ml/min; Glucose 48 mg/dl (70-99); Potassium 3.2 mmol/L (3.5-5.1); Sodium 134 mmol/L (135-145); eGFR 41.19
[2023-06-19 07:30] VITALS: BP 108/61
[2023-06-19 08:19] LABS: Glucose - Point of Care 69 mg/dl (70-99)
[2023-06-19] MEDS: MUCINEX 600 MG PO ×2 (08:57→19:46)
[2023-06-19] MEDS: CYMBALTA DELAYED RELEASE 30 MG PO (08:57)
[2023-06-19] MEDS: PROTONIX 40 MG PO (08:57)
[2023-06-19] MEDS: SYNTHROID 75 MCG PO (08:57)
[2023-06-19] MEDS: CORTEF 20 MG PO (08:58)
[2023-06-19] MEDS: LASIX 80 MG PO (08:59)
[2023-06-19] MEDS: NOVOLOG FLEXPEN-LOW RESISTANCE SC ×2 (09:01→12:49)
[2023-06-19] MEDS: DESENEX/MITRAZOL/ZEASORB 1 APPLIC TOPICAL ×2 (09:01→19:47)
[2023-06-19] MEDS: KCL 40 MEQ PO (09:01)
[2023-06-19] MEDS: TOPROL XL PO (09:02)
[2023-06-19] MEDS: LANTUS 0.200000000000000011 UNITS SC (09:27)
[2023-06-19 09:28] LABS: Glucose - Point of Care 93 mg/dl (70-99)
--- NOTE | 2023-06-19 11:25 | W.PN.HOSP.TC ---
Today's Communication/Plan
-
Check INR
Replete KCL
monitor poc
snf in am
Assessment / Plan
Assessment / Plan
#COVID weakness
-Not a candidate for remdesivir or Decadron
-Continue patient's scheduled hydrocortisone 20 mg a.m./10 mg p.m. for adrenal insufficiency
-Consult case management for SNF placement
-PT/OT eval-SNF.
-Tylenol as needed
-Mucinex as needed
#CKD stage IIIb
-restart lasix. Cr at baseline 1.4-1.8
#Hx frequent falls
-Fall precautions
# Status post BI�V ICD upgrade 06/11/2023 with AVJ ablation
#Nonsustained V. tach previous ICD
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
#Nonischemic cardiomyopathy
-d/w with CBC cardiology and pt was evaluated for post op check on 06/17.
#Chronic systolic heart failure reduced EF 30%
I/O, daily weights
Lasix 80 mg daily
#hypokalemia
replete/monitor
#Paroxysmal A-fib
#Subtherapeutic INR
-cont� coumadin increase dose
-INR pending for today
#Dementia Hx-mild
-monitor
#DM 2
Accu-Cheks with SSI, check HgbA1c at 7 on 05/27/23
-Continue Lantus 20 u and ISS
-poc 69-->93
#Status post pituitary adenoma resection
#Hypopituitarism
-Continue hydrocortisone 20 mg a.m., 10 mg every afternoon
-Continue Synthroid
#Ulcerative colitis status post colostomy right lower quadrant 52 years ago
#HTN�benign
-Continue metoprolol succinate 100 mg daily with hold parameters
#CAD/CABG x 4 vessel 2000
#[place]
-Continue metoprolol succinate 100 mg daily with hold parameters
-Continue Ranexa with hold parameters
#HLD
-Continue Lipitor
#DVT with IVC filter 2018
#Chronic Thrombocytopenia
-monitor. no acute for transfusion.
#Depression
-Continue duloxetine 30 mg daily
DVT prophylaxis
-Continue HOOP COILER Coumadin
DNR
PT/OT-SNF. Await placement. CM aware. Plan for SNF in am
Anticipated Discharge: Within 24 hours
Subjective/Interval History
-
Date of Service: June 19, 2023
Episode of hypoglycemia earlier
Patient did finish his whole breakfast
Afebrile
Remains on room air
Objective Data
-
Labs:
Laboratory Results
06/19/23
05:48
Sodium 134 L
Potassium 3.2 L
Chloride 101
Carbon Dioxide 23
BUN 46 H
Creatinine 1.6 H
Glucose 48 L*
Calcium 8.0 L
Vital Signs:
Vital Signs
Temp Pulse Resp BP Pulse Ox
97.4 F 81 20 108/61 95
06/19/23 07:30 06/19/23 08:59 06/19/23 07:30 06/19/23 09:02 06/19/23 07:30
I&O
06/18/23 06/19/23 06/20/23
06:59 06:59 06:59
Intake Total 720 / 720 960 / 960
Output Total 1500 / 1500 1200 / 1200
Balance -780 / -780 -240 / -240
Physical Exam
-
General: Well Developed and No Apparent Distress
HEENT: Normocephalic, Atraumatic and Moist Mucous Membranes
Respiratory: Clear to Auscultation
Cardiac: Regular Rhythm, S1/S2 and Other (aquacell dressing left site wall-non tender to palpaption); Negative Murmur, Rub or Gallop
GI: Soft, Nontender, Nondistended, Normal Bowel Sounds and Ostomy; Negative Organomegaly
Rectal: Deferred by Provider
Musculoskeletal: No Clubbing, No Cyanosis and No Edema
Skin: Negative Rash
Neuro: Awake, Alert, No Motor Deficits and Nonfocal/Grossly Intact
Psych: Calm
--- NOTE | 2023-06-19 12:00 | WOUNDNOTE ---
WOC RN note: Ostomy supplies given to JOELLE Castro who will place in patient's room. Gloria reports his ostomy appliance is intact.
[2023-06-19 12:44] LABS: Glucose - Point of Care 143 mg/dl (70-99)
[2023-06-19] MEDS: VITAMIN C 1000 MG PO (12:49)
[2023-06-19] MEDS: VITAMIN D3 (cholecalciferol) 100 MCG PO (12:49)
[2023-06-19] MEDS: MAGNESIUM OXIDE 500 MG PO (12:49)
--- NOTE | 2023-06-19 13:01 | CM ---
Addendum entered by Payal Ordonez 06/19/23 16:01:
CM waited on hold for 45 min, reached, [facility]mid Tavera who indicated they have until 07/03, but 'no worries the wood processing worker is working on it'. CM confirmed fax number and office number with Omid and he indicated that they would confirm auth when able.
reference number is [id number]. Per Omid he has notified the CM assigned to the case to call CM at [phone]/fax [phone] with updates.
Original Note:
called [facility] and spoke with sam saini to obtain an auth for snf rehab at [facility].i faxed clinicals to [phone].given auth# [id number] from 06/20/23 to 06/26/23.nurse will review clinicals and get back to us to determine if auth
has been approved. phone number to call report is [phone] and fax is [phone].
[2023-06-19 15:30] VITALS: BP 119/86
[2023-06-19 16:04] VITALS: BP 129/74; PULSE 94; O2SAT 99
[2023-06-19 17:34] LABS: Glucose - Point of Care 305 mg/dl (70-99)
[2023-06-19] MEDS: CORTEF 10 MG PO (17:47)
[2023-06-19] MEDS: NOVOLOG FLEXPEN-LOW RESISTANCE 4 UNITS SC (17:47)
[2023-06-19] MEDS: COUMADIN 6 MG PO (17:47)
[2023-06-19] MEDS: RANEXA EXTENDED RELEASE 500 MG PO (17:47)
[2023-06-19 18:26] LABS: INR 3.22; PT 32.8 Sec (11.4-14.6)
[2023-06-19 21:23] LABS: Glucose - Point of Care 161 mg/dl (70-99)
[2023-06-19] MEDS: LIPITOR 40 MG PO (22:26)
[2023-06-19] MEDS: FLOMAX 0.400000000000000022 MG PO (22:26)
[2023-06-19 23:48] VITALS: BP 148/87
[2023-06-20] MEDS: SYNTHROID 75 MCG PO (06:01)
[2023-06-20 07:40] VITALS: BP 127/62
[2023-06-20 08:20] VITALS: BMI 22.7
[2023-06-20 08:27] LABS: INR 4.06; PT 39.5 Sec (11.4-14.6)
[2023-06-20 08:51] LABS: Glucose - Point of Care 74 mg/dl (70-99)
[2023-06-20 08:54] LABS: Blood Urea Nitrogen 43 mg/dl (9-20); Calcium 8.5 mg/dl (8.4-10.2); Carbon Dioxide 24 mmol/L (22-30); Chloride 103 mmol/L (98-107); Estimated Creatinine Clearance 41 ml/min; Glucose 67 mg/dl (70-99); Sodium 137 mmol/L (135-145)
[2023-06-20] MEDS: PROTONIX 40 MG PO (09:10)
[2023-06-20] MEDS: NOVOLOG FLEXPEN-LOW RESISTANCE SC ×2 (09:10→11:25)
[2023-06-20] MEDS: CORTEF 20 MG PO (09:11)
[2023-06-20] MEDS: CYMBALTA DELAYED RELEASE 30 MG PO (09:11)
[2023-06-20] MEDS: LASIX 80 MG PO (09:11)
[2023-06-20] MEDS: DESENEX/MITRAZOL/ZEASORB 1 APPLIC TOPICAL ×2 (09:11→21:36)
[2023-06-20] MEDS: MUCINEX 600 MG PO ×2 (09:12→21:36)
[2023-06-20] MEDS: TOPROL XL 100 MG PO (09:12)
[2023-06-20] MEDS: LANTUS 0.200000000000000011 UNITS SC (11:22)
[2023-06-20] MEDS: VITAMIN C 1000 MG PO (11:25)
[2023-06-20] MEDS: VITAMIN D3 (cholecalciferol) 100 MCG PO (11:25)
[2023-06-20] MEDS: MAGNESIUM OXIDE 500 MG PO (11:25)
[2023-06-20] MEDS: NOVOLOG FLEXPEN-LOW RESISTANCE 3 UNITS SC (11:36)
[2023-06-20 11:37] VITALS: BP 120/69
--- NOTE | 2023-06-20 11:38 | W.PN.HOSP.TC ---
Today's Communication/Plan
-
Trend INR
Hold Coumadin
Await placement
Assessment / Plan
Assessment / Plan
#COVID weakness
-Not a candidate for remdesivir or Decadron
-Continue patient's scheduled hydrocortisone 20 mg a.m./10 mg p.m. for adrenal insufficiency
-Consult case management for SNF placement
-PT/OT eval-SNF.
-Tylenol as needed
-Mucinex as needed
#CKD stage IIIb
-restart lasix. Cr at baseline 1.4-1.8
#Hx frequent falls
-Fall precautions
# Status post BI�V ICD upgrade 06/11/2023 with AVJ ablation
#Nonsustained V. tach previous ICD
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
#Nonischemic cardiomyopathy
-d/w with CBC cardiology and pt was evaluated for post op check on 06/17.
#Chronic systolic heart failure reduced EF 30%
I/O, daily weights
Lasix 80 mg daily
#hypokalemia
replete/monitor
#Paroxysmal A-fib
#Subtherapeutic INR and now supratherapeutic
-Coumadin discontinued. INR 4. Hold Coumadin until INR trends down to less than 3.
#Dementia Hx-mild
-monitor
#DM 2
Accu-Cheks with SSI, check HgbA1c at 7 on 05/27/23
-Continue Lantus 20 u and ISS
-poc 69-->93
#Status post pituitary adenoma resection
#Hypopituitarism
-Continue hydrocortisone 20 mg a.m., 10 mg every afternoon
-Continue Synthroid
#Ulcerative colitis status post colostomy right lower quadrant 52 years ago
#HTN�benign
-Continue metoprolol succinate 100 mg daily with hold parameters
#CAD/CABG x 4 vessel 2000
#[place]
-Continue metoprolol succinate 100 mg daily with hold parameters
-Continue Ranexa with hold parameters
#HLD
-Continue Lipitor
#DVT with IVC filter 2017
#Chronic Thrombocytopenia
-monitor. no acute for transfusion.
#Depression
-Continue duloxetine 30 mg daily
DVT prophylaxis
-Continue NAIL SPECIALIST Coumadin
DNR
PT/OT-SNF. Await placement. CM aware.
Updated spouse over the phone in detail.
Anticipated Discharge: Today
Subjective/Interval History
-
Date of Service: June 20, 2023
No overnight events
frustrated still in hospital
Objective Data
-
Labs:
Laboratory Results
06/20/23
07:30
PT 39.5 H
INR 4.06
Sodium 137
Potassium 4.0
Chloride 103
Carbon Dioxide 24
BUN 43 H
Creatinine 1.5 H
Glucose 67 L
Calcium 8.5
Vital Signs:
Vital Signs
Temp Pulse Resp BP Pulse Ox
97.6 F 98 16 120/69 99
06/20/23 07:40 06/20/23 11:37 06/20/23 11:37 06/20/23 11:37 06/20/23 11:37
I&O
06/19/23 06/20/23 06/21/23
06:59 06:59 06:59
Intake Total 960 / 960 500 / 500
Output Total 1200 / 1200 1974 / 1974
Balance -240 / -240 -1475 / -1475
Physical Exam
-
General: Well Developed and No Apparent Distress
HEENT: Normocephalic, Atraumatic and Moist Mucous Membranes
Respiratory: Clear to Auscultation
Cardiac: Regular Rhythm, S1/S2 and Other (aquacell dressing left site wall-non tender to palpaption); Negative Murmur, Rub or Gallop
GI: Soft, Nontender, Nondistended, Normal Bowel Sounds and Ostomy; Negative Organomegaly
Rectal: Deferred by Provider
Musculoskeletal: No Clubbing, No Cyanosis and No Edema
Skin: Negative Rash
Neuro: Awake, Alert, No Motor Deficits and Nonfocal/Grossly Intact
Psych: Calm
[2023-06-20 11:39] LABS: Glucose - Point of Care 298 mg/dl (70-99)
--- NOTE | 2023-06-20 13:21 | PTCARENOTE ---
Pt on COVID precautions. Appropriate respirtory illness precautions sign on door only. Covid Cart across the room from the room to fit and ensure fire doors open and close, mixing supervisor notified and instructed. Pt on video remote monitoring on.
Pt has made no attempts to get oob so far this shift. pt with fq cough non productive. PT took pills without any issue. Right ileostomy drained x2 for large amount of gas. notified. call stiles in hand and he is content
--- NOTE | 2023-06-20 14:28 | PTCARENOTE ---
Second assessment unchanged from AM.
[2023-06-20 15:45] VITALS: BP 127/70
--- NOTE | 2023-06-20 16:10 | CM ---
Spoke with pts
Requesting updates on pts status
Aware waiting on auth for SNF
TT to Dr Arndt - asked to update pts
CM cont to follow for d/c needs
[2023-06-20 17:51] LABS: Glucose - Point of Care 236 mg/dl (70-99)
[2023-06-20] MEDS: NOVOLOG FLEXPEN-LOW RESISTANCE 2 UNITS SC (18:08)
[2023-06-20] MEDS: CORTEF 10 MG PO (18:09)
[2023-06-20] MEDS: RANEXA EXTENDED RELEASE 500 MG PO (18:09)
[2023-06-20 21:35] LABS: Glucose - Point of Care 165 mg/dl (70-99)
[2023-06-20] MEDS: FLOMAX 0.400000000000000022 MG PO (21:36)
[2023-06-20] MEDS: LIPITOR 40 MG PO (21:37)
[2023-06-20 23:55] VITALS: BP 118/73
--- NOTE | 2023-06-21 04:16 | PTCARENOTE ---
Pt received from previous shift in bed. AAO2, forgetful, MILLE LACS, confused conversation. Full physical assessment documented (refer to worklist). Resp illness precautions maintained. Ileostomy appliance intact, soft brown stool. Medsitter and bed
alarm in place for safety. Pt agitated at times when care provided, able to redirect/reorient. Call stiles within reach. Will continue to closely monitor.
[2023-06-21 05:48] VITALS: BMI 22.0
[2023-06-21 06:30] LABS: PT 48.6 Sec (11.4-14.6)
[2023-06-21] MEDS: SYNTHROID 75 MCG PO (06:31)
[2023-06-21 06:53] LABS: INR 5.27
[2023-06-21 08:12] LABS: Glucose - Point of Care 75 mg/dl (70-99)
[2023-06-21 08:22] VITALS: BP 111/71
[2023-06-21] MEDS: CYMBALTA DELAYED RELEASE 30 MG PO (09:56)
[2023-06-21] MEDS: LASIX 80 MG PO (09:56)
[2023-06-21] MEDS: DESENEX/MITRAZOL/ZEASORB 1 APPLIC TOPICAL ×2 (09:57→20:09)
[2023-06-21] MEDS: CORTEF 20 MG PO (09:57)
[2023-06-21] MEDS: MUCINEX 600 MG PO ×2 (09:57→20:06)
[2023-06-21] MEDS: PROTONIX 40 MG PO (09:57)
[2023-06-21] MEDS: TOPROL XL 100 MG PO (09:57)
[2023-06-21] MEDS: MEPHYTON 1 MG PO (09:57)
[2023-06-21] MEDS: LANTUS 0.200000000000000011 UNITS SC (09:57)
[2023-06-21] MEDS: NOVOLOG FLEXPEN-LOW RESISTANCE SC (09:58)
--- NOTE | 2023-06-21 09:59 | CM ---
Attempted to obtain update on auth from [facility] had message stating they are currently closed
CM will follow for auth
--- NOTE | 2023-06-21 11:13 | W.PN.HOSP.TC ---
Today's Communication/Plan
-
await placement
Vit K 1mg
Trend INR
Monitor poc
Assessment / Plan
Assessment / Plan
#COVID weakness
-Not a candidate for remdesivir or Decadron
-Continue patient's scheduled hydrocortisone 20 mg a.m./10 mg p.m. for adrenal insufficiency
-Consult case management for SNF placement
-PT/OT eval-SNF.
-Tylenol as needed
-Mucinex as needed
#CKD stage IIIb
-restart lasix. Cr at baseline 1.4-1.8
#Hx frequent falls
-Fall precautions
# Status post BI�V ICD upgrade 06/11/2023 with AVJ ablation
#Nonsustained V. tach previous ICD
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
#Nonischemic cardiomyopathy
-d/w with CBC cardiology and pt was evaluated for post op check on 06/17.
#Chronic systolic heart failure reduced EF 30%
I/O, daily weights
Lasix 80 mg daily
#hypokalemia
replete/monitor
#Paroxysmal A-fib
#Subtherapeutic INR and now supratherapeutic
-Coumadin discontinued. INR 5.2 s/p vitamin K 1mg dose today.
-daily INR.
#Dementia Hx-mild
-monitor
#DM 2
Accu-Cheks with SSI, check HgbA1c at 7 on 05/27/23
-Continue Lantus 20 u and ISS
-poc 75
#Status post pituitary adenoma resection
#Hypopituitarism
-Continue hydrocortisone 20 mg a.m., 10 mg every afternoon
-Continue Synthroid
#Ulcerative colitis status post colostomy right lower quadrant 52 years ago
#HTN�benign
-Continue metoprolol succinate 100 mg daily with hold parameters
#CAD/CABG x 4 vessel 2000
#[place]
-Continue metoprolol succinate 100 mg daily with hold parameters
-Continue Ranexa with hold parameters
#HLD
-Continue Lipitor
#DVT with IVC filter 2017
#Chronic Thrombocytopenia
-monitor. no acute for transfusion.
#Depression
-Continue duloxetine 30 mg daily
DVT prophylaxis
-Continue HEALTH AND NUTRITION SPECIALIST Coumadin
DNR
PT/OT-SNF. Await placement. CM aware.
Updated spouse over the phone in detail on 06/20 .
Anticipated Discharge: Today
Subjective/Interval History
-
Date of Service: June 21, 2023
remains on room air
awaiting breakfast
denies chest pain or sob.
Objective Data
-
Labs:
Laboratory Results
06/21/23
05:54
PT 48.6 H
INR 5.27 H*
Vital Signs:
Vital Signs
Temp Pulse Resp BP Pulse Ox
97.5 F 97 16 111/71 99
06/21/23 08:22 06/21/23 08:22 06/21/23 08:22 06/21/23 08:22 06/21/23 08:22
I&O
06/20/23 06/21/23 06/22/23
06:59 06:59 06:59
Intake Total 500 / 500 1140 / 1140
Output Total 1974
Balance -1475 / -1475 -785 / -785
Physical Exam
-
General: Well Developed and No Apparent Distress
HEENT: Normocephalic, Atraumatic and Moist Mucous Membranes
Respiratory: Clear to Auscultation
Cardiac: Regular Rhythm, S1/S2 and Other (aquacell dressing left site wall-non tender to palpaption); Negative Murmur, Rub or Gallop
GI: Soft, Nontender, Nondistended, Normal Bowel Sounds and Ostomy; Negative Organomegaly
Rectal: Deferred by Provider
Musculoskeletal: No Clubbing, No Cyanosis and No Edema
Skin: Negative Rash
Neuro: Awake, Alert, No Motor Deficits and Nonfocal/Grossly Intact
Psych: Calm
[2023-06-21] MEDS: MAGNESIUM OXIDE 500 MG PO (12:38)
[2023-06-21] MEDS: VITAMIN C 1000 MG PO (12:38)
[2023-06-21] MEDS: VITAMIN D3 (cholecalciferol) 100 MCG PO (12:38)
[2023-06-21] MEDS: NOVOLOG FLEXPEN-LOW RESISTANCE 1 UNITS SC (12:39)
[2023-06-21 12:43] LABS: Glucose - Point of Care 274 mg/dl (70-99)
--- NOTE | 2023-06-21 15:36 | PTCARENOTE ---
PT made multiple attempts to get oob this am while on med sitter. Med sitter called me and I was able to get into room before he exited the bed. Bed alarm on, not ringing. i verified it was plugged in and working. PT awake and agitated pointing at
me very aggressively. I told the patient to please not speak to me or use aggressive body language with me. After a couple minutes of reorienting him he was improved. Before I left the room pt was AAO3 and more pleasant.
--- NOTE | 2023-06-21 15:39 | PTCARENOTE ---
found in room with surgical mask. I gave her a N95 mask and she then asked me how to use it. I showed her. She put it on. one hour later i found her with the surgical mask and she stated the mask hurt her. The state she was going to the
cafeteria. I told her of our COVID precautions. She was not happy that she was not able to go there because she needed food. I attempted to order her a tray from the kitchen but she stated she would just go home. not happy with the room,
stated the room was dirty. We called cleaning team and they did come and re -clean the room, as they had just cleaned the room two hours prior.. PT now resting in room with call stiles in hand
[2023-06-21 16:04] VITALS: BP 144/82
[2023-06-21 16:13] LABS: Glucose - Point of Care 226 mg/dl (70-99)
[2023-06-21] MEDS: NOVOLOG FLEXPEN-LOW RESISTANCE 2 UNITS SC (16:26)
[2023-06-21] MEDS: CORTEF 10 MG PO (16:27)
[2023-06-21] MEDS: RANEXA EXTENDED RELEASE 500 MG PO (16:37)
[2023-06-21] MEDS: LIPITOR 40 MG PO (21:36)
[2023-06-21] MEDS: FLOMAX 0.400000000000000022 MG PO (21:36)
[2023-06-21] MEDS: MYLICON 80 MG PO (21:38)
[2023-06-21 21:54] LABS: Glucose - Point of Care 237 mg/dl (70-99)
[2023-06-21 23:05] VITALS: BP 137/80
[2023-06-22 05:49] LABS: % Basophils 0.2 % (0-2); % Eosinophils 1.6 % (0-6); % Immature Granulocytes 0.4 % (0-0.5); % Lymphocytes 23.4 % (20.5-51.1); % Monocytes 6.8 % (1.7-9.3); % Neutrophils 67.6 % (42.2-75.2); Absolute Eosinophils 0.1 10^3/uL (0-0.7); Absolute Lymphocytes 1.3 10^3/uL (1.2-3.4); Absolute Monocytes 0.4 10^3/uL (0.1-0.6); Absolute Neutrophils 3.7 10^3/uL (1.4-6.5); Hematocrit 38.5 % (39.0-52.0); Hemoglobin 13.2 g/dL (13.0-18.0); Mean Corp Hgb Conc. 34.3 g/dL (33.0-37.0); Mean Corpuscular Hgb 30.7 pg (27.0-31.0); Mean Corpuscular Volume 89.5 fL (80.0-94.0); Mean Platelet Volume 10.4 fL (7.4-10.4); Nucleated Red Blood Cells % 0 % (-); Platelet Count 115 10^3/uL (130-400); White Blood Cell Count 5.5 10^3/uL (4.8-10.8)
[2023-06-22 06:00] VITALS: BMI 21.8
[2023-06-22] MEDS: SYNTHROID 75 MCG PO (06:03)
[2023-06-22 06:05] LABS: INR 2.16; PT 23.9 Sec (11.4-14.6)
[2023-06-22 06:12] LABS: Blood Urea Nitrogen 45 mg/dl (9-20); Calcium 8.7 mg/dl (8.4-10.2); Carbon Dioxide 29 mmol/L (22-30); Chloride 102 mmol/L (98-107); Estimated Creatinine Clearance 38 ml/min; Glucose 124 mg/dl (70-99); Potassium 4.1 mmol/L (3.5-5.1); Sodium 137 mmol/L (135-145); eGFR 41.19
[2023-06-22 07:00] VITALS: BP 141/69
[2023-06-22 07:42] LABS: Glucose - Point of Care 109 mg/dl (70-99)
[2023-06-22] MEDS: NOVOLOG FLEXPEN-LOW RESISTANCE SC (09:02)
[2023-06-22] MEDS: CORTEF 20 MG PO (09:02)
[2023-06-22] MEDS: PROTONIX 40 MG PO (09:02)
[2023-06-22] MEDS: CYMBALTA DELAYED RELEASE 30 MG PO (09:03)
[2023-06-22] MEDS: LASIX 80 MG PO (09:03)
[2023-06-22] MEDS: MUCINEX 600 MG PO ×2 (09:03→19:25)
[2023-06-22] MEDS: LANTUS 0.200000000000000011 UNITS SC (09:04)
[2023-06-22] MEDS: TOPROL XL 100 MG PO (09:06)
[2023-06-22] MEDS: DESENEX/MITRAZOL/ZEASORB 1 APPLIC TOPICAL (09:08)
--- NOTE | 2023-06-22 10:12 | W.PN.HOSP.TC ---
Addendum entered and electronically signed by Rubi Ferguson MD 06/22/23 15:59:
Addendum
Plan of care discussed with the at the bedside.
Discussed with case management.
agreeable to try SNF, she felt was looking better and much improved
Total discharge time spent to see the patient, examine the patient on the floor, review data and lab results, discuss treatment plan with patient, , case worker, and nursing staff around 65 minutes.
Original Note:
Today's Communication/Plan
-
.
Assessment / Plan
Assessment / Plan
Physical Exam
-
General: Well Developed and No Apparent Distress
HEENT: Normocephalic, Atraumatic, Moist Mucous Membranes.
Respiratory: Clear to Auscultation
Cardiac: Regular Rhythm and S1/S2; Negative Murmur, Rub or Gallop
GI: Soft, Nontender, Nondistended and Normal Bowel Sounds.
Rectal: No rectal bleeding noted.
Musculoskeletal: No Clubbing, No Cyanosis and No Edema
Skin: Negative Rash
Neuro: Awake, Alert, Oriented, AO x 3 and Nonfocal/Grossly Intact
Psych: Calm
#COVID weakness
-Not a candidate for remdesivir or Decadron
-Continue patient's scheduled hydrocortisone 20 mg a.m./10 mg p.m. for adrenal insufficiency
-Consult case management for SNF placement
-PT/OT eval-SNF.
-Tylenol as needed
-Mucinex as needed
#CKD stage IIIb
-restarted Lasix. Cr at baseline 1.4-1.8
#Hx frequent falls
-Fall precautions
# Status post BI�V ICD upgrade 06/11/2023 with AVJ ablation
#Nonsustained V. tach previous ICD
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
#Nonischemic cardiomyopathy
-d/w with CBC cardiology and pt was evaluated for post op check on 06/17.
#Chronic systolic heart failure reduced EF 30%
I/O, daily weights
Lasix 80 mg daily
#hypokalemia
replete/monitor
#Paroxysmal A-fib
#Subtherapeutic INR and now supratherapeutic
-Coumadin discontinued. INR 5.2 s/p vitamin K 1mg dose today.
-daily INR.
#Dementia Hx-mild
-monitor
#DM 2
Accu-Cheks with SSI, check HgbA1c at 7 on 05/27/23
-Continue Lantus 20 u and ISS
-poc 75
#Status post pituitary adenoma resection
#Hypopituitarism
-Continue hydrocortisone 20 mg a.m., 10 mg every afternoon
-Continue Synthroid
#Ulcerative colitis status post colostomy right lower quadrant 52 years ago
#HTN�benign
-Continue metoprolol succinate 100 mg daily with hold parameters
#CAD/CABG x 4 vessel 2000
#[place]
-Continue metoprolol succinate 100 mg daily with hold parameters
-Continue Ranexa with hold parameters
#HLD
-Continue Lipitor
#DVT with IVC filter 2017
#Chronic Thrombocytopenia
-monitor. no acute for transfusion.
#Depression
-Continue duloxetine 30 mg daily
DVT prophylaxis
-Continue VALVE AND REGULATOR REPAIRER Coumadin
DNR
PT/OT-SNF. Await placement. CM aware.
Total time spent to see the patient, examine the patient on the floor, review data and lab results, discuss treatment plan with patient and nursing staff around 55 minutes
Anticipated Discharge: Today
Subjective/Interval History
-
Date of Service: June 22, 2023
Objective Data
-
Labs:
Laboratory Results
06/22/23
05:26
WBC 5.5
Hgb 13.2
Hct 38.5 L
Plt Count 115 L D
PT 23.9 H
INR 2.16 D
Sodium 137
Potassium 4.1
Chloride 102
Carbon Dioxide 29
BUN 45 H
Creatinine 1.6 H
Glucose 124 H
Calcium 8.7
Vital Signs:
Vital Signs
Temp Pulse Resp BP Pulse Ox
98.0 F 71 17 141/69 97
06/22/23 07:00 06/22/23 09:03 06/22/23 07:00 06/22/23 09:03 06/22/23 07:00
I&O
06/21/23 06/22/23 06/23/23
06:59 06:59 06:59
Intake Total 1140 / 1140 960 / 960
Output Total 5 / 1924 1500 / 1500
Balance -785 / -785 -540 / -540
[2023-06-22 11:52] LABS: Glucose - Point of Care 247 mg/dl (70-99)
[2023-06-22] MEDS: NOVOLOG FLEXPEN-LOW RESISTANCE 2 UNITS SC ×2 (11:55→17:55)
[2023-06-22] MEDS: VITAMIN D3 (cholecalciferol) 100 MCG PO (11:56)
[2023-06-22] MEDS: VITAMIN C 1000 MG PO (11:57)
[2023-06-22] MEDS: MAGNESIUM OXIDE 500 MG PO (11:57)
--- NOTE | 2023-06-22 14:35 | CM ---
Patient for transfer to [facility]; please call [phone] and fax is [phone]. Patient accepted for transfer to SNF today. CM will complete forms for transportation. Patient auth from [facility] [place] [id number] for 7 days 06/20-06/26. Updated clinicals
to be called to [phone] (p)Clinicals then to be faxed to [phone] (f). CM will continue to follow for discharge planning needs.
Plan; SNF today [facility]
--- NOTE | 2023-06-22 15:51 | W.DCSUMMARY ---
Discharge Summary
Discharge Data
Date of Admission: 06/15/23
Date of Discharge: 06/22/23
-
Pending Results: No
Hospital Course
88 years old male admitted with weakness and falls at home. Patient was diagnosed with COVID infection upon admission. He had mild chills with low-grade temperature around 100.1. He and his reported weakness and loose stools at home but no
abdominal pain. Patient did not have shortness of breath or hypoxia. Chest radiography did not show acute cardiopulmonary process. Patient was given mild intravenous fluid and diuretic therapy was held. He started to improve. He had mild
hypokalemia and was given potassium replacement. Creatinine stable around 1.6. Patient had appointment for device incision check with cardiology. That was checked by cardiology service while in the hospital. His left pectoral incision site
appears well-healing without any redness, drainage or swelling. He was evaluated by physical therapy and recommended shelter facility placement. He remained hemodynamically stable. He was discharged to shelter facility in a stable
condition.
Discharge Plan
-
Patient Disposition: [facility]
Discharge Diagnosis/Procedures: COVID weakness
Supratherapeutic INR
Hypokalemia
Condition: Fair
Diet: As tolerated
Driving Restrictions: see restrictions below
Bathing Restrictions: OK to Shower
Activity Restrictions/Additional Instructions:
Wound Care Instructions
Miconazole powder to penis/groin rash, affected areas twice a day. Miconazole powder followed by no sting barrier wipe prn peristomal rash with each wafer change.
L dorsal great toe dried blister-no sting barrier wipe (allow to dry), cover with silicone foam or bandaid for protection, change every 2 days and as needed for loosened dressing.
L thigh abrasion and ryan abrasion-clean with saline, silicone border foam, change every 3 days and as needed for loosened dressing.
Bilateral knee high Tubigrip as tolerated; remove at bedtime; reapply every am.
Routine Ileostomy appliance change-use patient's supplies or Cruz wafer # [id number], Jenny seal and Cruz pouch # [id number]. Change 2 times a week and as needed for leakage.
Elevate heels off bed with pillow.
Pressure redistributing chair cushion (i.e. Air chair cushion).
Follow up at wound care center if needed, call for an appointment.
Stand Alone Forms: DC Inst - Implanted Device
Referrals:
Sylvia Mcnulty MD [Active] - (Office will call you for follow-up. Office visit 06/18/23 will be cancelled since you are in hospital and going to rehab, initial incision check done in hospital by [facility].)
Dominic Jules DO [Family Provider] -
Prescriptions:
Continued
nitroglycerin 0.4 MG tablet, sublingual
0.4 mg sublingual [id number] PRN (Reason: chest pain)
atorvastatin 40 MG tablet
40 mg PO HS
hydrocortisone 10 MG tablet
20 mg PO DAILY
levothyroxine 75 MCG tablet
75 mcg PO DAILY AT 0700
ascorbic acid (vitamin C) [Vitamin C] 500 MG tablet
1,000 mg PO NOON
magnesium 250 MG tablet
500 mg PO NOON
tamsulosin 0.4 MG capsule
0.4 mg PO HS Qty: 30 0RF
ranolazine 500 MG tablet extended release 12 hr
500 mg PO QPM
warfarin 2 mg Tablet
2 mg PO QPM
Hold Instructions: Resume on 05/04/23.
hydrocortisone 10 mg Tablet
10 mg PO QPM
pantoprazole 40 mg Tablet,Delayed Release (Dr/Ec)
40 mg PO DAILY
fluticasone propionate 50 mcg/actuation [place],Suspension
2 spray INTRANASAL DAILY PRN (Reason: Allergies)
duloxetine 30 mg capsule,delayed release(DR/EC)
30 mg PO DAILY
insulin glargine 100 unit/mL (3 mL) Insulin Pen
20 unit SC DAILY
acetaminophen [Tylenol] 325 mg Tablet
650 mg PO Q6HPRN PRN (Reason: MILD PAIN)
furosemide 80 MG tablet
80 mg PO DAILY
metolazone 2.5 mg Tablet
2.5 mg PO TUFR PRN (Reason: WEIGHT>200LBS)
Rx Instructions:
06/15/2023, TAKE 30 MINUTES PRIOR TO LASIX ON THURSDAY AND THURSDAY FOR WEIGHT > 200LBS.
cholecalciferol (vitamin D3) [Vitamin D3] 50 mcg (2,000 unit) Tablet
100 mcg PO NOON
metoprolol succinate 100 mg Tablet Extended Release 24 Hr
100 mg PO DAILY Qty: 90 3RF
insulin aspart U-100 [Novolog FlexPen U-100 Insulin] 100 unit/mL (3 mL) Insulin Pen
0 sliding scale dose SC DIRECTED
Patient Comments:
06/15/2023, per pt. spouse, pt. uses this med. on a sliding scale but is unsure of what the sliding scale is. Pt.'s spouse states that pt.'s BS was 154 today and he took 9 units.
potassium chloride 20 mEq tablet extended release
40 meq PO .LUNCHTIME
Discharge Orders:
Discharge Patient (As Directed); Ordered 06/22/23
Ordered By: Rubi Ferguson
[2023-06-22 16:31] LABS: Glucose - Point of Care 244 mg/dl (70-99)
[2023-06-22] MEDS: CORTEF 10 MG PO (17:54)
[2023-06-22] MEDS: RANEXA EXTENDED RELEASE 500 MG PO (17:57)
[2023-06-22] MEDS: DESENEX/MITRAZOL/ZEASORB TOPICAL (19:28)
--- NOTE | 2023-06-22 21:01 | TRANSFER ---
Patient was transferred to [facility] around 20:15. Report is given by the day shift RN. All belongings was packed and taken with pt.
== END 2023-06-22 21:12 ==
LOC: 3 WEST ACU 18:35
PROVIDERS: Clinical Nurse Specialist Family Health; Student in an Organized Health Care Education/Training Program; ADMITTING PHYSICIAN Hospitalist; ATTENDING PHYSICIAN Internal Medicine; EMERGENCY PHYSICIAN Emergency Medicine; FAMILY PHYSICIAN Internal Medicine
DX: U07.1 COVID-19 (principal); R53.1 Weakness; I25.10 Atherosclerotic heart disease of native coronary artery without angina pectoris; I13.0 Hypertensive heart and chronic kidney disease with heart failure and stage 1 through stage 4 chronic kidney disease, or unspecified chronic kidney disease; I50.22 Chronic systolic (congestive) heart failure; I25.2 Old myocardial infarction; E78.00 Pure hypercholesterolemia, unspecified; R19.7 Diarrhea, unspecified; R05.9 Cough, unspecified; E27.40 Unspecified adrenocortical insufficiency; I42.8 Other cardiomyopathies; E11.22 Type 2 diabetes mellitus with diabetic chronic kidney disease; N17.9 Acute kidney failure, unspecified; F32.A Depression, unspecified; E78.5 Hyperlipidemia, unspecified; E66.9 Obesity, unspecified; I48.0 Paroxysmal atrial fibrillation; F03.A0 Unspecified dementia, mild, without behavioral disturbance, psychotic disturbance, mood disturbance, and anxiety; E23.0 Hypopituitarism; E11.649 Type 2 diabetes mellitus with hypoglycemia without coma; K51.90 Ulcerative colitis, unspecified, without complications; D69.6 Thrombocytopenia, unspecified; E87.6 Hypokalemia; R29.6 Repeated falls; N18.32 Chronic kidney disease, stage 3b; E03.9 Hypothyroidism, unspecified; Z95.1 Presence of aortocoronary bypass graft; Z87.891 Personal history of nicotine dependence; Z86.718 Personal history of other venous thrombosis and embolism; Z66 Do not resuscitate; Z79.01 Long term (current) use of anticoagulants; Z88.8 Allergy status to other drugs, medicaments and biological substances; Z79.890 Hormone replacement therapy; Z79.4 Long term (current) use of insulin
CPT/HCPCS: 71046; 80048; 80053; 82570; 82962; 84300; 85025; 85610; 87502; 87811; 97116; 97166; 97530; 99285; G0378